=== PATIENT | male | born 1940 | race Caucasian/White ===

== ENCOUNTER 2023-05-13 11:32 | Emergency (ER) | payer MEDICARE, SELFPAY ==
[2023-05-13 11:34] VITALS: BP 129/73; PULSE 80; RESP 20; TEMP 37.2; O2SAT 95
--- NOTE | 2023-05-13 11:57 | ED.SKABFB ---
HPI - Skin/Abscess/Foreign Bdy General Chief complaint: Skin/Abscess/Foreign Body Stated complaint: shingles Time Seen by Provider: 05/13/23 11:34 Source: patient and family Mode of arrival: ambulatory Limitations: no limitations History of Present Illness HPI narrative: patient is an 82-year-old male with left mid chest rash. Symptoms have been present for 2 weeks however they are getting worse and he presents today with worsening rash. Pain is controlled by ibuprofen. He complains of vesicles on his back. MD complaint: rash Onset (ago): week(s) (2) Location: R foot (left chest) Severity: mild Severity scale (1-10): 3 Quality: burning and pruritic Pain Consistency: intermittent Relieving factors: medication (nsaids) Exacerbating factors: none Context: none Associated symptoms: denies other symptoms Treatments prior to arrival: none Related Data Home Medications Medication Instructions Recorded Confirmed empagliflozin 25 mg tablet 25 mg PO DAILY 05/13/23 05/13/23 (Jardiance) glimepiride 4 mg tablet 4 mg PO DAILY 05/13/23 05/13/23 insulin glargine 100 unit/mL (3 42 unit subcut HS 05/13/23 05/13/23 mL) subcutaneous pen (Lantus Solostar U-100 Insulin) lisinopril 20 1 tablet PO DAILY 05/13/23 05/13/23 mg-hydrochlorothiazide 12.5 mg tablet metformin 500 mg tablet,extended 2,000 mg PO DAILY 05/13/23 05/13/23 release 24 hr simvastatin 40 mg tablet 40 mg PO DAILY 05/13/23 05/13/23 Allergies Allergy/AdvReac Type Severity Reaction Status Date / Time No Known Allergies Allergy Verified 05/13/23 11:55 Review of Systems Review of Systems: All systems reviewed & are unremarkable except as noted in HPI and below Constitutional: Constitutional: Reports no additional constitutional complaints Eyes: Eyes: Reports no additional eye complaints ENT: Reports system reviewed and no additional complaints, except as documented Cardiovascular: Cardiovascular: Reports no additional cardiovascular complaints Respiratory: Respiratory: Reports no additional respiratory complaints Gastrointestinal: Gastrointestinal: Reports no additional gastrointestinal complaints Genitourinary: Genitourinary: Reports no additional male genitourinary complaints Musculoskeletal: Musculoskeletal: Reports no additional musculoskeletal complaints Integumentary/Breasts: Skin/Breast: Reports system reviewed and no additional complaints, except as docu Neurologic: Reports system reviewed and no additional complaints, except as documented Psychiatric: Psychiatric: Reports no additional psychiatric complaints Endocrine: Endocrine: Reports no additional endocrine complaints Hematologic/Lymphatic: Hematologic/Lymphatic: Reports no additional hematologic/lymphatic complaints Allergic/Immunologic: Allergic/Immunologic: Reports no additional allergic/immunologic complaints Exam Const: General: healthy appearing, no acute distress and alert HENMT: Head: normal to inspection, no contusions and no hematomas Eyes: Conjunctivae: conjunctivae normal Pupils: Equal, round and reactive pupils present EOM: EOMs intact bilaterally Resp: Effort & Inspection: normal respiratory effort Auscultation: clear to auscultation bilaterally, no crackles and no rales Cardio: Rate: regular rate and not bradycardic Rhythm: regular rhythm Heart sounds: no murmurs GI: Inspection: non-distended GI Palp: Yes Soft to palpation, No Tenderness to palpation present (GI) and No Guarding due to palpation present (GI) Auscultation: normal bowel sounds Back/Spine/Pelvis: Back: no CVA tenderness Skin: General skin exam: normal color, no jaundice and no pallor Other: Left upper abdomen under the breast has a non crossing midline rash that extends from the midline all the way to the midline from front to back; the rash is erythematic and excoriated with some crusting and vesicles Neuro: General: patient oriented x3, moves all extremities, no meningeal
[2023-05-13 12:14] VITALS: BP 130/70; PULSE 78; RESP 20; TEMP 36.9; O2SAT 95
== END 2023-05-13 12:20 | disposition home or self-care (01) ==
LOC: CHSED 11:59
PROVIDERS: Emergency Provider Emergency Medicine
DX: B02.9 Zoster without complications (principal); Z79.4 Long term (current) use of insulin; Z79.899 Other long term (current) drug therapy
CPT/HCPCS: 99283

== ENCOUNTER 2023-07-25 10:09 | Outpatient (RCR) | payer MEDICARE, SELFPAY ==
--- NOTE | 2023-07-25 10:58 | PTOPEVAL1 ---
Assessment and note entered by Daron Kearns Evaluation Information Assessment Status Evaluation Diagnosis lumbar strain, low back pain Onset 07/25/22 Subjective Information Pt. reports that he developed a gradual onset of low back pain about 1 year ago. He reports he initially noted back pain after weed eating in his yard. He describes pain going across the low back. He notices pain most after standing for about 15-30 minutes. He reports that he cannot walk far due to increasing pain. He report that he has been attempting to continue to do his yardwork, but has to have a chair with him to sit in every 15 minutes due to pain. He reports that he tries to continue to to all regular home activities, but it takes much longer and requires frequent rest due to pain. He reports that his goal is to reduce his low back pain with prolonged standing. Reported Pain Level Pain Score 1: Self Report Assessment PT Clinical Summary Pt. is an 82 year old male who enters the clinic with lower back pain. He presents with indication of degenrative changes of the lumbar spine. He currently presents with impaired ROM, impaired flexibility, impaired strength, impaired gait and functional decline. Continued skilled PT is indicated in order to improve these areas to allow the pt. to be able to complete all IADL's with improved comfort and efficiency. Plan of Care Interventions Electrical Stimulation,Gait Training,Hot Pack/Cold Pack,Manual Therapy,Neuro Re-education,Patient/ Caregiver Educati,Therapeutic Activities, Therapeutic Exercise PT Services Indicated Yes Treatment Frequency and 3x/week x 12 visits Duration These treatments will address the objective and functional deficits as defined above. The patient will be advanced safely and appropriately in order for the patient to progress towards his/her prior level of function. Additional exercises will be introduced and as well as a comprehensive home exercise program upon discharge, if needed, ?to ensure carryover of functional gains achieved in the clinic. This treatment plan has been reviewed and agreement upon by the patient.
--- NOTE | 2023-07-25 10:58 | OPREHPOC ---
Outpatient Therapy Plan of Care This is a Multidisciplinary Plan of Care that may contain components documented by all disciplines (PT, OT, and ST.) PT Problem 1 PT Problem #1 Knowledge Deficit PT Goal 1 Goal Pt. will be independent with a HEP addressing core strength and stability and well as trunk mobility . Target Visit 2 PT Problem 2 PT Problem #2 Impaired Flexibility PT Goal 1 Goal Pt. will increase hamstring flexibility to 15 degrees from full knee extension on both right and left to improve postural awareness Target Visit 12 PT Problem 3 PT Problem #3 Impaired Range of Motion PT Goal 1 Goal Pt. will be able to safely reach to the floor to lift small objects without pain. Target Visit 12 PT Problem 4 PT Problem #4 Impaired Functional Mobil PT Goal 1 Goal Pt. will present with less than 5% limitation on the Oswestry indicating functional improvements. Target Visit 12 PT Goal 2 Goal Pt. will report being able to stand for 30-45 minutes without rest in order to complete all household duties. Target Visit 12 PT Problem 5 PT Problem #5 Impaired Strength PT Goal 1 Goal Pt. will increase bilateral hip abductor strength to 4+/5 in order to improve pelvic stability. Target Visit 12
--- NOTE | 2023-09-21 16:42 | PCPTNOTE ---
patient called and cancelled his therapy for today, reason unknown.
--- NOTE | 2023-09-27 13:57 | PCPTNOTE ---
09/27/23: Pt cancelled today's appointment, states he can not stay out of the bathroom. -Magaly Elmore, PT
--- NOTE | 2023-10-06 13:53 | OPREHPOC ---
Outpatient Therapy Plan of Care This is a Multidisciplinary Plan of Care that may contain components documented by all disciplines (PT, OT, and ST.) PT Problem 1 PT Problem #1 Knowledge Deficit PT Goal 1 Goal Pt. will be independent with a HEP addressing core strength and stability and well as trunk mobility . Target Visit 2 Progress Partially Met PT Problem 2 PT Problem #2 Impaired Flexibility PT Goal 1 Goal Pt. will increase hamstring flexibility to 15 degrees from full knee extension on both right and left to improve postural awareness Target Visit 12 Progress Partially Met PT Problem 3 PT Problem #3 Impaired Range of Motion PT Goal 1 Goal Pt. will be able to safely reach to the floor to lift small objects without pain. Target Visit 12 Progress Met PT Problem 4 PT Problem #4 Impaired Functional Mobil PT Goal 1 Goal Pt. will present with less than 5% limitation on the Oswestry indicating functional improvements. Target Visit 12 Progress Met PT Goal 2 Goal Pt. will report being able to stand for 30-45 minutes without rest in order to complete all household duties. Target Visit 12 Progress Met PT Problem 5 PT Problem #5 Impaired Strength PT Goal 1 Goal Pt. will increase bilateral hip abductor strength to 4+/5 in order to improve pelvic stability. Target Visit 12 Progress Met
--- NOTE | 2023-10-06 13:53 | PTOPDC ---
Assessment and note entered by Magaly Elmore, PT Evaluation Information Assessment Status Discharge Diagnosis lumbar strain, low back pain Onset 07/25/22 Subjective Information Tariq Kohli reports he has not had low back pain for several weeks now. He has not had to perform weed whacking in several months either and that is what provoked his pain before. He is able to perform all daily activities including grocery shopping and [employer] mobile. Reported Pain Level Pain Score 0: Self Report Assessment PT Clinical Summary Tariq Kohli has completed 12 skilled PT visits for low back pain. He is reporting no difficulty with his daily activities including performing [employer] mobile and grocery shopping. He demonstrates improved lumbar AROM, improved balance, improved hip strength, and improved functional mobility. He was educated on home exercises for core stability to continue on his own. He will be discharged to an independent home exercise program. Plan of Care PT Services Indicated No
== END 2023-10-06 10:47 | disposition home or self-care (01) ==
LOC: CHSPT 10:09
DX: S39.012D Strain of muscle, fascia and tendon of lower back, subsequent encounter (principal)
CPT/HCPCS: 97014; 97110; 97112; 97161; 97530; G0283